=== PATIENT | female | born 1975 | race African-American/Black ===

== ENCOUNTER 2019-07-29 14:26 | Inpatient (IN) | payer OTHER ==
[~2019-07-29] VITALS: Ht 165.1 cm; Wt 79.4 kg
--- NOTE | 2019-07-29 14:41 | NUR ---
ED Nurse Note: Patient came to ED from home as advised by Dr. Phipps post-fibroid embolization. Patient brought CT and lab results from [facility]. Patient AxO x 4, no s/s of acute distress. 20 g IV started in right AC, blood drawn and sent to lab, urine collected and sent to lab. Patient on the embroidery worker, bed in lowest position.
[2019-07-29] MEDS ORDERED: Morphine Sulfate 4mg/ml Inj (IV USE ONLY) IVP ONE ×2 (14:45→15:30)
[2019-07-29 14:49] VITALS: BP 115/76
--- NOTE | 2019-07-29 14:54 | Emergency Room Report ---
History of Present Illness General Chief Complaint: Abdominal Pain Source: Patient Present Illness HPI Disclaimer: Please note that this report is being documented using [employer] technology. This can lead to erroneous entry secondary to incorrect interpretation by the dictating instrument. HPI: 43-year-old female with recent right-sided uterine artery embolization for treatment of uterine fibroids presents for evaluation of abdominal pain. Procedure was 2 days ago. She went to [facility] emergency department today having a full panel of blood work and a CT scan. Blood work is unremarkable aside from mild anemia with a hemoglobin of 10.6 and an MCV of 65. The patient takes iron supplements. Otherwise chemistry unremarkable as is urine. CT scan shows a enlarged uterus with multiple fibroids and evidence of recent embolization procedure on the right side with a tiny foci of air but no evidence of hematoma or other significant pathology. The patient reports the right sided lower pelvic pain but denies any bleeding, hematoma over the puncture site, dysuria, hematuria, vomiting, fever, chills, chest pain or other symptoms at this time. PMH: Uterine fibroids PSH: Uterine artery embolization Allergies: Denies Social Hx: Current tobacco use, occasional alcohol use, denies drug use Allergies: Coded Allergies: No Known Allergies (Unverified , 07/29/19) Patient History Last Menstrual Period: on period Nursing Documentation-PMH Past Medical History: No History, Except For Review of Systems All Other Systems: negative except mentioned in HPI Physical Exam Vital Signs Date Time Temp Pulse Resp B/P (MAP) Pulse Ox O2 Delivery O2 Flow Rate FiO2 07/29/19 14:30 97.2 87 16 115/76 (89) 97 Room Air General: Awake and alert, no acute distress HEENT: NC/AT. EOMI. Cardiovascular: RRR. S1 and S2 normal. No murmur appreciated Resp: Normal work of breathing. No cough, wheezing or crackles appreciated Abdomen: Abdomen is soft, nondistended. There is tenderness palpation in the periumbilical region, suprapubic region, right lower quadrant without rebound or palpable mass. Venipuncture site over the right groin is clean dry and intact without bleeding and no hematoma. Skin: Intact. No abrasions, laceration or rash over the exposed skin MSK: Normal tone and bulk. Moving all extremities. No obvious deformity. Neuro: Awake and alert. Mentating appropriately. Medical Decision Making Diagnostic Impression: Primary Impression: Abdominal pain ER Course 43-year-old female presents for evaluation of abdominal pain 2 days after a uterine artery embolization procedure. Denies bleeding, vomiting, fevers or other sign of infection or intra-abdominal pathology. CT scan from [facility] emergency department interpreted as a enlarged uterus multiple fibroids but no evidence of bleed, obstruction or other significant pathology. Labs are within normal limits aside from microcytic anemia which is chronic for the patient. Will obtain IV access, give antiemetics and analgesics and admit for further monitoring and pain control. Last Vital Signs Date Time Temp Pulse Resp B/P (MAP) Pulse Ox O2 Delivery O2 Flow Rate FiO2 07/29/19 14:30 97.2 87 16 115/76 (89) 97 Room Air Disposition: PLACE IN OBSERVATION Condition: Stable Ottoniel Zepeda MD Jul 29, 2019 14:54
--- NOTE | 2019-07-29 15:05 | NUR ---
ED Nurse Note: Patient still feeling 10/10 lower right abdominal pain after Morphine 4mg, VSS. Dr. Zepeda notified.
[2019-07-29] MEDS ORDERED: PERCOCET 5-3251 EACH ORAL (16:13)
[2019-07-29] MEDS ORDERED: LEXAPRO20 MG ORAL (16:13)
[2019-07-29] MEDS ORDERED: COLACE100 MG ORAL (16:13)
[2019-07-29] MEDS ORDERED: AMOX TR-K CLV1 EAC2 ORAL (16:14)
[2019-07-29] MEDS ORDERED: ZOFRAN ODT8 MG ORAL (16:14)
--- NOTE | 2019-07-29 16:25 | NUR ---
ED Nurse Note: Report given to Pavithra DANIELS.
[2019-07-29 17:00] VITALS: BP 132/78
--- NOTE | 2019-07-29 17:00 | NUR ---
NURSE NOTES: Patient received from ER via gurney at 1700. Patient alert/oriented x4, calm. No SOB on RA. No NV. RAC heplock intact. Right groin steri strip x1, with tegederm in place, CDI. Belongings with son. Son at bedside. Vitals stable. Oriented patient to room and call light for safety. Bed in lowest position, call light in reach, will continue to monitor.
[2019-07-29] MEDS ORDERED: HYDROmorphone 1mg/ml Carpuject IVP PRN (17:15)
--- NOTE | 2019-07-29 18:30 | NUR ---
NURSE NOTES: Home medications reconciled with patient. Home medication bottles from home sent down to pharmacy security, patient aware/agrees, receipt slip in chart.
--- NOTE | 2019-07-29 19:50 | NUR ---
HAND-OFF: Report given to Chi DANIELS. Endorsed patient needs IVF to be started, awaiting from pharmacy, SCDs to be applied and Lexapro ordered from home meds list. Endorsed admission orders and new MOM order.
[2019-07-29 20:00] VITALS: BP 133/68
--- NOTE | 2019-07-29 20:00 | NUR ---
NURSE NOTES: Patient received in bed, son at bedside. C/O pain, will medicate as prescribed. Will start IVF and other due medication.
[2019-07-29] MEDS: D5 1/2NS w/KCl 20mEq 1,000 ML IV SCH (20:03)
[2019-07-29] MEDS: Milk of Magnesia 30ml Ud ORAL SCH (20:04)
--- NOTE | 2019-07-29 20:15 | NUR ---
NURSE NOTES: Call placed to Dr. Phipps re: patient requesting her home medication lexapro to be continued. Awaiting call back.
--- NOTE | 2019-07-29 21:00 | NUR ---
NURSE NOTES: No call back from Dr. Phipps. Follow up call placed.
[2019-07-29] MEDS: ceFAZolin sod 2 GM in D5W 110 ML IVPB SCH (21:12)
--- NOTE | 2019-07-29 22:00 | NUR ---
NURSE NOTES: No callback from Dr. Phipps. Call placed to Dr. Vanegas. Dr. Barnes picked up. Received order for lexapro 20mg po bedtime. Patient made aware and will administer.
[2019-07-30] VITALS (7 sets, daily range): BP systolic 93–171; BP diastolic 60–88
[2019-07-30] MEDS: ceFAZolin sod 2 GM in D5W 110 ML IVPB SCH ×3 (03:48→21:24)
[2019-07-30] MEDS: D5 1/2NS w/KCl 20mEq 1,000 ML IV SCH ×4 (03:48→23:49)
[2019-07-30 06:42] LABS: BASOPHILS % (AUTO) 1.6 % (0.0-2.0); EOSINOPHILS % (AUTO) 1.8 % (0.0-3.0); LYMPHOCYTES % (AUTO) 9.9 % (20.0-45.0); MEAN CORPUSCULAR VOLUME 68 FL (80-99); MONOCYTES % (AUTO) 8.3 % (1.0-10.0); NEUTROPHILS % (AUTO) 78.5 % (45.0-75.0); PLATELET COUNT 251 K/UL (150-450); RED CELL DISTRIBUTION WIDTH 19.3 % (11.6-14.8); WHITE BLOOD COUNT 12.5 K/UL (4.8-10.8)
[2019-07-30 07:00] LABS: ALANINE AMINOTRANSFERASE 47 U/L (12-78); ALBUMIN 2.9 G/DL (3.4-5.0); ALBUMIN/GLOBULIN RATIO 0.7 (1.0-2.7); ALKALINE PHOSPHATASE 79 U/L (46-116); ANION GAP 8 mmol/L (5-15); ASPARTATE AMINO TRANSFERASE 27 U/L (15-37); BILIRUBIN,TOTAL 0.2 MG/DL (0.2-1.0); BLOOD UREA NITROGEN 6 mg/dL (7-18); CALCIUM 7.9 MG/DL (8.5-10.1); CARBON DIOXIDE 26 MMOL/L (21-32); CHLORIDE 104 MMOL/L (98-107); CREATININE 0.8 MG/DL (0.55-1.30); POTASSIUM 3.9 MMOL/L (3.5-5.1); SODIUM 138 MMOL/L (136-145)
--- NOTE | 2019-07-30 07:03 | NUR ---
NURSE NOTES: Report received from Chi DANIELS, rounds made. Patient resting in semi-fowlers position in bed. No distress on RA. No NV. Poor appetite. IVF infusing to RAC as ordered (D51/2NS + 20 KCL at 125 ml/hr). Bilateral SCDs on. RLQ abdominal pain 5/10 at this time, will medicate as ordered. Encouraged PO fluid intake. Son at bedside. Call light in reach, bed in lowest position, will continue to monitor.
--- NOTE | 2019-07-30 07:09 | NUR ---
HAND-OFF: Report given to Shari DANIELS.
--- NOTE | 2019-07-30 11:10 | History & Physical ---
History of Present Illness General Date patient seen: Jul 30, 2019 Reason for Hospitalization: Abdominal Pain Present Illness HPI 43 y/o female w/ hx of uterine fibroid s/p embolization 07/27 having significant abdominal pain and brought into hospital. has been taking frequent pain medications. NO BM or passing of gas since 07/27 morning. She is tolerating clear liquids, is belching, no nausea or vomiting. No fever or chills. PMH: Uterine fibroids Tobacco use disorder Depression Allergies: Coded Allergies: No Known Allergies (Unverified , 07/29/19) Medication History Scheduled Amoxicillin/Potassium Clav 875-125 Mg Tab* (Amox Tr-K Clv 875-125 Mg Tab*), 1 TAB ORAL EVERY 12 HOURS, (Reported) Escitalopram Oxalate* (Lexapro*), 20 MG ORAL DAILY, (Reported) Scheduled PRN Docusate Sodium* (Colace*), 100 MG ORAL TWICE A DAY PRN for Constipation, ( Reported) Ondansetron Odt* (Zofran Odt*), 4 MG ORAL Q6H PRN for Nausea & Vomiting, ( Reported) Oxycodone/Acetaminophen 5-325* (Percocet 5-325 Mg Tablet*), 1 TAB ORAL Q4H PRN for For Pain, (Reported) Patient History History Provided By: Patient, Family Member, Medical Record Healthcare decision maker N Resuscitation status Full Code Advanced Directive on File No Review of Systems Review of Symptoms General ROS: no weight loss or fever Psychological ROS: no depression or mood changes, no memory loss Ophthalmic ROS: no visual changes or eye irritation ENT ROS: no nasal congestion, hearing loss, dizziness Allergy and Immunology ROS: no allergic symptoms or urticaria Hematological and Lymphatic ROS: no swollen glands, unusual bleeding or bruising Endocrine ROS: no polyuria, polydipsia, weight changes, temperature intolerance Respiratory ROS: no cough, shortness of breath, or wheezing Cardiovascular ROS: no chest pain or dyspnea on exertion Gastrointestinal ROS: + abdominal pain Musculoskeletal ROS: no myalgias or arthralgias Neurological ROS: no TIA or stroke symptoms Dermatological ROS: no new or changing skin lesions, rashes or pruritis Physical Exam Physical Exam General appearance: alert, cooperative, no distress, appears stated age Head: Normocephalic, without obvious abnormality, atraumatic Eyes: conjunctivae/corneas clear. PERRL, EOM's intact. Fundi benign Throat: Lips, mucosa, and tongue normal. Teeth and gums normal Neck: supple, symmetrical, trachea midline, no adenopathy, thyroid: not enlarged, symmetric, no tenderness/mass/nodules, no carotid bruit and no JVD Lungs: clear to auscultation bilaterally Heart: regular rate and rhythm, S1, S2 normal, no murmur, click, rub or gallop Abdomen: Tender, distended, hyperactive bowel sounds at times, then very quiet Extremities: extremities normal, atraumatic, no cyanosis or edema Pulses: 2+ and symmetric Skin: Skin color, texture, turgor normal. No rashes or lesions Neurologic: Grossly normal Last 24 Hour Vital Signs Date Time Temp Pulse Resp B/P (MAP) Pulse Ox O2 Delivery O2 Flow Rate FiO2 07/30/19 08:00 98.1 84 16 129/75 (93) 93 07/30/19 04:00 99.3 86 20 114/64 (81) 98 07/30/19 03:29 99.4 07/30/19 00:00 99.4 83 20 93/60 (71) 94 07/29/19 21:00 Room Air 07/29/19 20:00 99.4 83 20 133/68 (89) 98 07/29/19 17:34 Room Air 07/29/19 17:00 97.3 80 20 132/78 (96) 99 07/29/19 16:30 97.3 76 17 116/72 100 Room Air 07/29/19 15:30 97.1 07/29/19 15:30 97.1 07/29/19 14:49 97.2 74 16 115/76 97 Room Air 07/29/19 14:49 87 16 Room Air 07/29/19 14:30 97.2 87 16 115/76 (89) 97 Room Air Intake and Output 07/29/19 07/30/19 19:00 07:00 Intake Total 0 ml 1485 ml Balance 0 ml 1485 ml Intake Oral 0 ml 200 ml IV Total 1285 ml # Voids 1 Laboratory Tests Test 07/30/19 04:55 White Blood Count 12.5 K/UL (4.8-10.8) H Red Blood Count 4.70 M/UL (4.20-5.40) Hemoglobin 10.0 G/DL (12.0-16.0) L Hematocrit 32.0 % (37.0-47.0) L Mean Corpuscular Volume 68 FL (80-99) L Mean Corpuscular Hemoglobin 21.2 PG (27.0-31.0) L Mean Corpuscular Hemoglobin Concent 31.1 G/DL (32.0-36.0) L Red Cell Distribution Width 19.3 % (11.6-14.8) H Platelet Count 251 K/UL (150-450) Mean Platelet Volume 7.0 FL (6.5-10.1) Neutrophils (%) (Auto) 78.5 % (45.0-75.0) H Lymphocytes (%) (Auto) 9.9 % (20.0-45.0) L Monocytes (%) (Auto) 8.3 % (1.0-10.0) Eosinophils (%) (Auto) 1.8 % (0.0-3.0) Basophils (%) (Auto) 1.6 % (0.0-2.0) Sodium Level 138 MMOL/L (136-145) Potassium Level 3.9 MMOL/L (3.5-5.1) Chloride Level 104 MMOL/L (98-107) Carbon Dioxide Level 26 MMOL/L (21-32) Anion Gap 8 mmol/L (5-15) Blood Urea Nitrogen 6 mg/dL (7-18) L Creatinine 0.8 MG/DL (0.55-1.30) Estimat Glomerular Filtration Rate > 60 mL/min (>60) Glucose Level 113 MG/DL (74-106) H Calcium Level 7.9 MG/DL (8.5-10.1) L Total Bilirubin 0.2 MG/DL (0.2-1.0) Aspartate Amino Transf (AST/SGOT) 27 U/L (15-37) Alanine Aminotransferase (ALT/SGPT) 47 U/L (12-78) Alkaline Phosphatase 79 U/L (46-116) Total Protein 7.2 G/DL (6.4-8.2) Albumin 2.9 G/DL (3.4-5.0) L Globulin 4.3 g/dL Albumin/Globulin Ratio 0.7 (1.0-2.7) L Height (Feet): 5 Height (Inches): 5.00 Weight (Pounds): 175 Medications Current Medications Medications (Trade) Dose Ordered Sig/Kevon Route PRN Reason Start Time Stop Time Status Last Admin Dose Admin Cefazolin Sodium 2 gm/Dextrose 110 ml @ 220 mls/hr Q8H IVPB 07/29/19 20:00 08/05/19 19:59 07/30/19 03:48 Dextrose/ Electrolytes 1,000 ml @ 125 mls/hr Q8H IV 07/29/19 18:30 08/28/19 18:29 07/30/19 03:48 Escitalopram Oxalate (Lexapro) 20 mg BEDTIME ORAL 07/29/19 23:00 08/28/19 22:59 07/29/19 22:12 Hydromorphone HCl (Dilaudid) 1 mg Q3H PRN IVP Mild Pain (Pain Scale 1-3) 07/29/19 17:15 08/05/19 17:14 Hydromorphone HCl (Dilaudid) 2 mg Q2H PRN IVP Severe Pain (Pain Scale 7-10) 07/29/19 17:15 08/05/19 17:14 07/30/19 09:19 Hydromorphone HCl (Dilaudid) 2 mg Q3H PRN IVP Moderate Pain (Pain Scale 4-6) 07/29/19 17:15 08/05/19 17:14 Magnesium Hydroxide (Mom) 30 ml TWICE A DAY ORAL 07/29/19 19:45 08/28/19 19:44 07/29/19 20:04 Ondansetron HCl (Zofran) 4 mg Q6H PRN IVP Nausea & Vomiting 07/29/19 17:15 08/28/19 17:14 Assessment/Plan Assessment/Plan: Problem List: * Intractable abdominal pain * Uterine fibroid s/p emobilization 07/27 * Depression * tobacco use disorder Plan: * pain control * bowel regimen * clear liquid diet as tolerated * IVF * KUB * advised to ambulate Case d/w Dr. Phipps [facility] declaration INPATIENT level of care is warranted for this patient because patient is a 89 year old with who presents with suspicion of . I have a high level of concern because . Patient is at high risk for . Plan of care/treatment include . Patient care is expected to be greater than 2 midnights. OBSERVATION level of care is warranted for this patient. Patient is a 89 year old with who presents with . Patient will be admitted for 1 midnight, but if additional night(s) is/are necessary, patient will be converted to inpatient status for the entire hospitalization Disposition: Once the patient is stable to leave the hospital, I anticipate the patient will likely be discharged to the following environment: Estimated discharge date: I spent 70 minutes on this patient's case, and minutes was dedicated to counseling and/or care coordination. MIPS (Merit-based Incentive Payment System) Applicable CPT: 54093, 59044 CHECK ALL THAT ARE MET: Measure #5 (CHF): All ages. Prescribe PRICILLA/ARB upon discharge for patients with left ventricular systolic dysfunction. If not, the reason is clearly documented in the medical chart. Measure #8 (CHF): All ages. Prescribe a beta bandar upon discharge for patients with left ventricular systolic dysfunction. If not, the reason is clearly documented in the medical chart. Measure #47 Advance care plan or surrogate decision maker documented in the medical record. Measure #130 The provider has documented, updated, or reviewed the patients current medication list and has documented it in the patients note. Measure #374 (All): Send report to referring provider. Measure #407(Sepsis due to MSSA bacteremia): Age 18+ Patient treated with a beta-lactam antibiotic (Nafcillin, Oxacillin or Cefazolin) as definitive therapy. MEDICAL COMPLEXITY High complexity medical decision making (need 2/3 categories) Problem - need 4 points Acute/new problem with new plan for workup (4 points, 1 max) Acute/new problem without additional workup (3 points, 1 max) Unstable chronic problem actively being managed (2 point each, 2 max) Stable chronic problem actively being managed (1 point each, 2 max) Self-limited/transient process (constipation, muscle ache, etc) (1 point each , 2 max) Data - need 4 points Reviewed labs/imaging studies (1 points, 2 max) Independent review of imaging (EKG, xrays, etc) (2 points, 2 max) Discussed case with consult/other MD/RN (2 points, 2 max) High Risk - qualify if have one of the following: Severe exacerbation of acute problem, acute mental status change, IV narcotics , monitoring drug levels (vancomycin, INR, tacrolimus etc) Jim Barnes MD Jul 30, 2019 11:10
[2019-07-30] MEDS: Milk of Magnesia 30ml Ud ORAL SCH ×2 (11:46→17:33)
[2019-07-30] MEDS: Bisacodyl EC 5mg tab ORAL SCH (11:47)
[2019-07-30] MEDS: Docusate 100mg cap ORAL SCH ×2 (11:47→17:34)
--- NOTE | 2019-07-30 14:12 | NUR ---
NURSE NOTES: Spoke to regarding patient and new order received. Order read back and carried out.
--- NOTE | 2019-07-30 14:17 | General Surgery Progress Note ---
General Surgery-Progress Note Subjective Day of Surgery: friday Procedure Performed uterine artery embolization Symptoms: pain same, voiding well Objective Last 24 Hour Vital Signs Date Time Temp Pulse Resp B/P (MAP) Pulse Ox O2 Delivery O2 Flow Rate FiO2 07/30/19 08:00 98.1 84 16 129/75 (93) 93 07/30/19 04:00 99.3 86 20 114/64 (81) 98 07/30/19 03:29 99.4 07/30/19 00:00 99.4 83 20 93/60 (71) 94 07/29/19 21:00 Room Air 07/29/19 20:00 99.4 83 20 133/68 (89) 98 07/29/19 17:34 Room Air 07/29/19 17:00 97.3 80 20 132/78 (96) 99 07/29/19 16:30 97.3 76 17 116/72 100 Room Air 07/29/19 15:30 97.1 07/29/19 15:30 97.1 07/29/19 14:49 97.2 74 16 115/76 97 Room Air 07/29/19 14:49 87 16 Room Air 07/29/19 14:30 97.2 87 16 115/76 (89) 97 Room Air I&O Intake and Output 07/29/19 07/30/19 19:00 07:00 Intake Total 0 ml 1485 ml Balance 0 ml 1485 ml Intake Oral 0 ml 200 ml IV Total 1285 ml # Voids 1 Dressing: dry Wound: clean Drains: none Cardiovascular: RSR Respiratory: clear Abdomen: soft, flat, scaphoid, tenderness, decreased bowel sounds Extremities: no edema, no tenderness, no cyanosis Laboratory Tests Test 07/30/19 04:55 White Blood Count 12.5 K/UL (4.8-10.8) H Red Blood Count 4.70 M/UL (4.20-5.40) Hemoglobin 10.0 G/DL (12.0-16.0) L Hematocrit 32.0 % (37.0-47.0) L Mean Corpuscular Volume 68 FL (80-99) L Mean Corpuscular Hemoglobin 21.2 PG (27.0-31.0) L Mean Corpuscular Hemoglobin Concent 31.1 G/DL (32.0-36.0) L Red Cell Distribution Width 19.3 % (11.6-14.8) H Platelet Count 251 K/UL (150-450) Mean Platelet Volume 7.0 FL (6.5-10.1) Neutrophils (%) (Auto) 78.5 % (45.0-75.0) H Lymphocytes (%) (Auto) 9.9 % (20.0-45.0) L Monocytes (%) (Auto) 8.3 % (1.0-10.0) Eosinophils (%) (Auto) 1.8 % (0.0-3.0) Basophils (%) (Auto) 1.6 % (0.0-2.0) Sodium Level 138 MMOL/L (136-145) Potassium Level 3.9 MMOL/L (3.5-5.1) Chloride Level 104 MMOL/L (98-107) Carbon Dioxide Level 26 MMOL/L (21-32) Anion Gap 8 mmol/L (5-15) Blood Urea Nitrogen 6 mg/dL (7-18) L Creatinine 0.8 MG/DL (0.55-1.30) Estimat Glomerular Filtration Rate > 60 mL/min (>60) Glucose Level 113 MG/DL (74-106) H Calcium Level 7.9 MG/DL (8.5-10.1) L Total Bilirubin 0.2 MG/DL (0.2-1.0) Aspartate Amino Transf (AST/SGOT) 27 U/L (15-37) Alanine Aminotransferase (ALT/SGPT) 47 U/L (12-78) Alkaline Phosphatase 79 U/L (46-116) Total Protein 7.2 G/DL (6.4-8.2) Albumin 2.9 G/DL (3.4-5.0) L Globulin 4.3 g/dL Albumin/Globulin Ratio 0.7 (1.0-2.7) L Additional Comments abdominal x ray, much stool, no obvious pathology Plan Additional Comments GS, GI consults ordered, fleet's enema, ambulate. Sumanth Phipps MD Jul 30, 2019 14:17
--- NOTE | 2019-07-30 14:26 | Diagnostic Imaging Report ---
Indication: Abdominal pain. Status post recent fibroid embolization Comparison: None Single view of the abdomen obtained Findings: Bowel gas pattern is nonspecific. No mass, ectopic calcifications, or abnormal gas collections are identified. There is a moderate amount of fecal retention within the right hemicolon which is distended. The bones are unremarkable. Impression: Moderate fecal retention within the colon.
--- NOTE | 2019-07-30 14:34 | NUR ---
*-* INSURANCE *-* ALL AVAILABLE CLINICALS HAVE BEEN FAXED TO: [facility] RAMIROM: MATT REF# [id number] FAX [phone] Work Work
--- NOTE | 2019-07-30 14:46 | General Progress Note ---
Assessment/Plan Problem List: (1) Abdominal pain ICD Codes: R10.9 - Unspecified abdominal pain SNOMED: 16197017 (2) Uncontrollable post procedure pain (3) Constipation ICD Codes: K59.00 - Constipation, unspecified SNOMED: 79625404 Assessment/Plan: trial of relistor bowel regimen kub in am repeat labs will fu Subjective ROS Limited/Unobtainable: Yes Allergies: Coded Allergies: No Known Allergies (Unverified , 07/29/19) Objective Last 24 Hour Vital Signs Date Time Temp Pulse Resp B/P (MAP) Pulse Ox O2 Delivery O2 Flow Rate FiO2 07/30/19 08:00 98.1 84 16 129/75 (93) 93 07/30/19 04:00 99.3 86 20 114/64 (81) 98 07/30/19 03:29 99.4 07/30/19 00:00 99.4 83 20 93/60 (71) 94 07/29/19 21:00 Room Air 07/29/19 20:00 99.4 83 20 133/68 (89) 98 07/29/19 17:34 Room Air 07/29/19 17:00 97.3 80 20 132/78 (96) 99 07/29/19 16:30 97.3 76 17 116/72 100 Room Air 07/29/19 15:30 97.1 07/29/19 15:30 97.1 07/29/19 14:49 97.2 74 16 115/76 97 Room Air 07/29/19 14:49 87 16 Room Air Intake and Output 07/29/19 07/30/19 19:00 07:00 Intake Total 0 ml 1485 ml Balance 0 ml 1485 ml Intake Oral 0 ml 200 ml IV Total 1285 ml # Voids 1 Laboratory Tests 07/30/19 04:55: White Blood Count 12.5H, Red Blood Count 4.70, Hemoglobin 10.0L, Hematocrit 32.0L, Mean Corpuscular Volume 68L, Mean Corpuscular Hemoglobin 21.2L, Mean Corpuscular Hemoglobin Concent 31.1L, Red Cell Distribution Width 19.3H, Platelet Count 251, Mean Platelet Volume 7.0, Neutrophils (%) (Auto) 78.5H, Lymphocytes (%) (Auto) 9.9L, Monocytes (%) (Auto) 8.3, Eosinophils (%) (Auto) 1.8, Basophils (%) (Auto) 1.6, Sodium Level 138, Potassium Level 3.9, Chloride Level 104, Carbon Dioxide Level 26, Anion Gap 8, Blood Urea Nitrogen 6L, Creatinine 0.8, Estimat Glomerular Filtration Rate > 60, Glucose Level 113H, Calcium Level 7.9L, Total Bilirubin 0.2, Aspartate Amino Transf (AST/SGOT) 27, Alanine Aminotransferase (ALT/SGPT) 47, Alkaline Phosphatase 79, Total Protein 7.2, Albumin 2.9L, Globulin 4.3, Albumin/Globulin Ratio 0.7L Height (Feet): 5 Height (Inches): 5.00 Weight (Pounds): 175 General Appearance: alert EENT: normal ENT inspection Neck: normal alignment Cardiovascular: normal rate Respiratory/Chest: lungs clear Abdomen: soft, hypoactive bowel sounds, tender Extremities: non-tender Matt Oquendo MD Jul 30, 2019 14:46
--- NOTE | 2019-07-30 15:12 | Consultation ---
History of Present Illness General Date patient seen: Jul 30, 2019 Reason for Hospitalization: Abdominal Pain Present Illness HPI This is a very pleasant 43 year old female history of symptomatic large uterine fibroid s/p embolization 07/[address] Conde who [place] [facility] [place] of abdominal pain. has been taking frequent pain medications. No BM or passing of gas since 07/27 morning. states she is usually regular but since has been constipated. no n/v/f/c. generalized abdominal discomfort as cramping 02/06. Allergies: Coded Allergies: No Known Allergies (Unverified , 07/29/19) Medication History Scheduled Amoxicillin/Potassium Clav 875-125 Mg Tab* (Amox Tr-K Clv 875-125 Mg Tab*), 1 TAB ORAL EVERY 12 HOURS, (Reported) Escitalopram Oxalate* (Lexapro*), 20 MG ORAL DAILY, (Reported) Scheduled PRN Docusate Sodium* (Colace*), 100 MG ORAL TWICE A DAY PRN for Constipation, ( Reported) Ondansetron Odt* (Zofran Odt*), 4 MG ORAL Q6H PRN for Nausea & Vomiting, ( Reported) Oxycodone/Acetaminophen 5-325* (Percocet 5-325 Mg Tablet*), 1 TAB ORAL Q4H PRN for For Pain, (Reported) Patient History History Provided By: Patient, Medical Record, PMD Healthcare decision maker N Resuscitation status Full Code Advanced Directive on File No Past Medical/Surgical History Past Medical/Surgical History: (1) Abdominal pain (2) Uncontrollable post procedure pain (3) Constipation Review of Systems Review of Symptoms General ROS: no weight loss or fever Psychological ROS: no depression or mood changes, no memory loss Ophthalmic ROS: no visual changes or eye irritation ENT ROS: no nasal congestion, hearing loss, dizziness Allergy and Immunology ROS: no allergic symptoms or urticaria Hematological and Lymphatic ROS: no swollen glands, unusual bleeding or bruising Endocrine ROS: no polyuria, polydipsia, weight changes, temperature intolerance Respiratory ROS: no cough, shortness of breath, or wheezing Cardiovascular ROS: no chest pain or dyspnea on exertion Gastrointestinal ROS: abdominal pain, bright red blood in stool. Musculoskeletal ROS: no myalgias or arthralgias Neurological ROS: no TIA or stroke symptoms Dermatological ROS: no new or changing skin lesions, rashes or pruritis Physical Exam Physical Exam General appearance: alert, cooperative, no distress, appears stated age Head: Normocephalic, without obvious abnormality, atraumatic Eyes: conjunctivae/corneas clear. PERRL, EOM's intact. Fundi benign Throat: Lips, mucosa, and tongue normal. Teeth and gums normal Neck: supple, symmetrical, trachea midline, no adenopathy, thyroid: not enlarged, symmetric, no tenderness/mass/nodules, no carotid bruit and no JVD Lungs: clear to auscultation bilaterally Heart: regular rate and rhythm, S1, S2 normal, no murmur, click, rub or gallop Abdomen: soft, mild discomfort /tender. Bowel sounds hypoactive. No masses, no organomegaly Extremities: extremities normal, atraumatic, no cyanosis or edema Pulses: 2+ and symmetric Skin: Skin color, texture, turgor normal. No rashes or lesions Neurologic: Grossly normal Last 24 Hour Vital Signs Date Time Temp Pulse Resp B/P (MAP) Pulse Ox O2 Delivery O2 Flow Rate FiO2 07/30/19 08:00 98.1 84 16 129/75 (93) 93 07/30/19 04:00 99.3 86 20 114/64 (81) 98 07/30/19 03:29 99.4 07/30/19 00:00 99.4 83 20 93/60 (71) 94 07/29/19 21:00 Room Air 07/29/19 20:00 99.4 83 20 133/68 (89) 98 07/29/19 17:34 Room Air 07/29/19 17:00 97.3 80 20 132/78 (96) 99 07/29/19 16:30 97.3 76 17 116/72 100 Room Air 07/29/19 15:30 97.1 07/29/19 15:30 97.1 Intake and Output 07/29/19 07/30/19 19:00 07:00 Intake Total 0 ml 1485 ml Balance 0 ml 1485 ml Intake Oral 0 ml 200 ml IV Total 1285 ml # Voids 1 Laboratory Tests Test 07/30/19 04:55 White Blood Count 12.5 K/UL (4.8-10.8) H Red Blood Count 4.70 M/UL (4.20-5.40) Hemoglobin 10.0 G/DL (12.0-16.0) L Hematocrit 32.0 % (37.0-47.0) L Mean Corpuscular Volume 68 FL (80-99) L Mean Corpuscular Hemoglobin 21.2 PG (27.0-31.0) L Mean Corpuscular Hemoglobin Concent 31.1 G/DL (32.0-36.0) L Red Cell Distribution Width 19.3 % (11.6-14.8) H Platelet Count 251 K/UL (150-450) Mean Platelet Volume 7.0 FL (6.5-10.1) Neutrophils (%) (Auto) 78.5 % (45.0-75.0) H Lymphocytes (%) (Auto) 9.9 % (20.0-45.0) L Monocytes (%) (Auto) 8.3 % (1.0-10.0) Eosinophils (%) (Auto) 1.8 % (0.0-3.0) Basophils (%) (Auto) 1.6 % (0.0-2.0) Sodium Level 138 MMOL/L (136-145) Potassium Level 3.9 MMOL/L (3.5-5.1) Chloride Level 104 MMOL/L (98-107) Carbon Dioxide Level 26 MMOL/L (21-32) Anion Gap 8 mmol/L (5-15) Blood Urea Nitrogen 6 mg/dL (7-18) L Creatinine 0.8 MG/DL (0.55-1.30) Estimat Glomerular Filtration Rate > 60 mL/min (>60) Glucose Level 113 MG/DL (74-106) H Calcium Level 7.9 MG/DL (8.5-10.1) L Total Bilirubin 0.2 MG/DL (0.2-1.0) Aspartate Amino Transf (AST/SGOT) 27 U/L (15-37) Alanine Aminotransferase (ALT/SGPT) 47 U/L (12-78) Alkaline Phosphatase 79 U/L (46-116) Total Protein 7.2 G/DL (6.4-8.2) Albumin 2.9 G/DL (3.4-5.0) L Globulin 4.3 g/dL Albumin/Globulin Ratio 0.7 (1.0-2.7) L Height (Feet): 5 Height (Inches): 5.00 Weight (Pounds): 175 Medications Current Medications Medications (Trade) Dose Ordered Sig/Kevon Route PRN Reason Start Time Stop Time Status Last Admin Dose Admin Bisacodyl (Dulcolax) 10 mg DAILY ORAL 07/30/19 11:00 08/29/19 10:59 07/30/19 11:47 Cefazolin Sodium 2 gm/Dextrose 110 ml @ 220 mls/hr Q8H IVPB 07/29/19 20:00 08/05/19 19:59 07/30/19 12:44 Dextrose/ Electrolytes 1,000 ml @ 125 mls/hr Q8H IV 07/29/19 18:30 08/28/19 18:29 07/30/19 12:44 Docusate Sodium (Colace) 100 mg TWICE A DAY ORAL 07/30/19 11:00 08/29/19 10:59 07/30/19 11:47 Escitalopram Oxalate (Lexapro) 20 mg BEDTIME ORAL 07/29/19 23:00 08/28/19 22:59 07/29/19 22:12 Hydromorphone HCl (Dilaudid) 1 mg Q3H PRN IVP Mild Pain (Pain Scale 1-3) 07/29/19 17:15 08/05/19 17:14 Hydromorphone HCl (Dilaudid) 2 mg Q2H PRN IVP Severe Pain (Pain Scale 7-10) 07/29/19 17:15 08/05/19 17:14 07/30/19 13:33 Hydromorphone HCl (Dilaudid) 2 mg Q3H PRN IVP Moderate Pain (Pain Scale 4-6) 07/29/19 17:15 08/05/19 17:14 Iron Sucrose 100 mg/Sodium Chloride 60 ml @ 240 mls/hr BEDTIME IVPB 07/30/19 21:00 08/03/19 21:14 Lactulose (Cephulac) 20 gm THREE TIMES A DAY ORAL 07/30/19 18:00 08/29/19 17:59 UNV Magnesium Hydroxide (Mom) 30 ml TWICE A DAY ORAL 07/29/19 19:45 08/28/19 19:44 07/30/19 11:46 Methylnaltrexone [place] (Relistor) 12 mg QOD SUBQ 08/01/19 09:00 08/31/19 08:59 UNV Mineral Oil (Fleet's Mineral Oil Enema) 133 ml ONCE ONCE RECTAL 07/30/19 14:15 07/30/19 14:16 UNV Ondansetron HCl (Zofran) 4 mg Q6H PRN IVP Nausea & Vomiting 07/29/19 17:15 08/28/19 17:14 07/30/19 13:42 Assessment/Plan Problem List: (1) Abdominal pain Assessment & Plan: 43F with abdominal pain. likely related to recent embolization and/or constipated. KUB noted exam as above labs noted umbilical reducible hernia unlikely etiology bowel care mag citrate AM KUB decrease narcotic use will follow with exam and care plan thank you ICD Codes: R10.9 - Unspecified abdominal pain SNOMED: [id number] Richar Quinteros Jul 30, 2019 15:12
[2019-07-30] MEDS ORDERED: Fleet's Mineral Oil Enema RECTAL SCH (15:15)
--- NOTE | 2019-07-30 15:56 | NUR ---
CASE MANAGEMENT: INITIAL REVIEW 43YR OLD FEMALE FROM HOME CC: ABD PAIN PMH: S/P 07/27/19 UTERINE FIBROIDS EMBOLIZATION SI:INTRACTABLE ABD PAIN 97.1 87 16 115/76 97% ON RA IS:IV MORPHINE SULFATE X2 IV ZOFRAN X1 US ABD X1 \: 3E MED SURG UNIT CASE MANAGEMENT: REVIEW 07/30/2019 SI:INTRACTABLE ABD PAIN 98.1 84 16 129/75 93% ON RA WBC 12.5 H/H 10.0/32.0 CA+7.9 IS:IV ANCEF Q8HR IV D5@125ML/HR IV ZOFRAN Q6HR/PRN LEXAPRO PO BID IV DILAUDID Q2HR/PRN \: 3E MED SURG UNIT PLAN: PAIN CONTROL TRAIL RELISTOR
[2019-07-30] MEDS ORDERED: Magnesium Citrate Liq Btl ORAL SCH (16:00)
[2019-07-30] MEDS: Lactulose 20gm/30ml UDC ORAL SCH (17:33)
--- NOTE | 2019-07-30 19:02 | NUR ---
HAND-OFF: Report given to René DANIELS, rounds made. Addendum: 07/30/19 at 2031 by Shari Watson RN Endorsed update in POC, no BM yet.
--- NOTE | 2019-07-30 19:15 | NUR ---
NURSE NOTES: Dr. Phipps and Dr. Barnes notified that patient has absent bowel sounds, distention, abdominal tenderness, last BM 07/27, poor appetite, one experience with nause, no emesis, no flatulence, no urge for BM either, labs reviewed. On clear liquids. Administered TAP water enema (instilled 400 ml at 0945), ambulated, no changes. Dr. Barnes discussed new POC with patient (administered Dulcolax and Colace), no changes. Abdominal XR done at 1305 (sent down via ), results reviewed by Dr. Phipps, order for Fleets. Administered at 1600, patient ambulated in halls, no BM. Administered MOM, lactulose, Mag Citrate, see eMAR. No changes, no BM, Dr. Phipps updated last at 1915. Endorsed above to next shift.
--- NOTE | 2019-07-30 19:20 | NUR ---
NURSE NOTES: Receive a report from FRANCES Mccarthy. Round is done. Pt is awake and alert. Still noted pain on RLQ. After two times enema, pt did not have BM and no gas passing yet. BS is hypoactive. Encourage to ambulation. No nausea/vomiting but has burping. Provide information and reassure pt. Surgery site is clear. IV on right AC is intact. Call light within reach. Will continue to monitor.
[2019-07-30] MEDS: Iron Sucrose 100 MG in NS 55 ML IVPB SCH (20:49)
--- NOTE | 2019-07-30 21:30 | NUR ---
NURSE NOTES: Pt had gas passing but not BM yet. Despite pain medication, pain level is 6/10 but after gas passing, pt felt much comfortable. Will continue to monitor.
--- NOTE | 2019-07-30 22:15 | NUR ---
NURSE NOTES: Pt had two times BM in the bathroom moderate amount. Noted abdomen bloated but discomfort level dropped. Will continue to monitor.
[2019-07-31] VITALS: BP 141/84
--- NOTE | 2019-07-31 02:35 | NUR ---
NURSE NOTES: Pt had one more BM in the bathroom. Soreness on RLQ is 6/10. Given pain medication and Zofran as ordered. Will continue to monitor.
[2019-07-31 04:00] VITALS: BP 126/76
[2019-07-31] MEDS: ceFAZolin sod 2 GM in D5W 110 ML IVPB SCH ×3 (04:30→21:57)
--- NOTE | 2019-07-31 05:00 | NUR ---
NURSE NOTES: Pain level is 4/10. No nausea noted. Pt is asleep without distress. Will continue to monitor.
--- NOTE | 2019-07-31 07:00 | NUR ---
NURSE NOTES: Call MD's office but unable to reach at this time. Will endorse AM shift follow up.
[2019-07-31 07:20] LABS: % IRON SATURATION 11 % (15-50); IRON 32 ug/dL (50-175); TOTAL IRON BINDING CAPACITY 304 ug/dL (250-450)
[2019-07-31 07:22] LABS: HEMATOCRIT 31.7 % (37.0-47.0); HEMOGLOBIN 9.9 G/DL (12.0-16.0); MEAN CORPUSCULAR VOLUME 68 FL (80-99); PLATELET COUNT 279 K/UL (150-450); RED BLOOD COUNT 4.66 M/UL (4.20-5.40); RED CELL DISTRIBUTION WIDTH 19.3 % (11.6-14.8); WHITE BLOOD COUNT 21.5 K/UL (4.8-10.8)
[2019-07-31 07:23] LABS: ALANINE AMINOTRANSFERASE 41 U/L (12-78); ALBUMIN 2.6 G/DL (3.4-5.0); ALBUMIN/GLOBULIN RATIO 0.6 (1.0-2.7); ALKALINE PHOSPHATASE 87 U/L (46-116); ANION GAP 8 mmol/L (5-15); ASPARTATE AMINO TRANSFERASE 26 U/L (15-37); BILIRUBIN,TOTAL 0.3 MG/DL (0.2-1.0); BLOOD UREA NITROGEN 4 mg/dL (7-18); CARBON DIOXIDE 26 MMOL/L (21-32); CHLORIDE 101 MMOL/L (98-107); CREATININE 0.7 MG/DL (0.55-1.30); POTASSIUM 3.9 MMOL/L (3.5-5.1); SODIUM 135 MMOL/L (136-145)
--- NOTE | 2019-07-31 07:55 | NUR ---
HAND-OFF: Written Report left to FRANCES Mccarthy. CN made aware.
[2019-07-31 08:00] VITALS: BP 126/82
[2019-07-31] MEDS: Milk of Magnesia 30ml Ud ORAL SCH ×2 (09:00→18:00)
--- NOTE | 2019-07-31 09:20 | NUR ---
NURSE NOTES: Rounds made. Patient resting in semi-fowlers position in bed. No distress on RA, no SOB. Abdominal pain 12/07, will medicate as ordered. Patient had x4 BMs in past shift. IVF (D5 1/2 +20 KCL at 125 ml/hr) infusing to RAC, without difficulty. Bilateral SCDs off. Son at bedside, call light in reach, bed in lowest position, will continue to monitor.
[2019-07-31] MEDS: Bisacodyl EC 5mg tab ORAL SCH (10:39)
[2019-07-31] MEDS: Docusate 100mg cap ORAL SCH ×2 (10:39→18:20)
[2019-07-31] MEDS: Lactulose 20gm/30ml UDC ORAL SCH ×3 (10:39→18:20)
--- NOTE | 2019-07-31 10:59 | NUR ---
RADIOLOGY DEPT., ABDOMEN X-RAY COMPLETED.-P.DYE
--- NOTE | 2019-07-31 11:32 | Diagnostic Imaging Report ---
ADDENDUM - Added by Panchito Finley M.D. on 07/31/2019 11:33 AM (-08:00) Decreased stool in the right abdomen. EXAM: XR Abdomen, 2 Views CLINICAL HISTORY: ABD PAIN TECHNIQUE: Frontal view of the abdomen/pelvis with upright view of the abdomen. COMPARISON: Abdominal radiographs on 07/30/2019. FINDINGS: Hardware: None. Abdomen: Nonspecific bowel gas pattern with gas-filled colon and small bowel. No free air. Bones: Normal. Soft tissues: Normal. Other: Mild projected over the left pelvis. Presumed phleboliths in the right pelvis. IMPRESSION: Nonspecific bowel gas pattern with gas-filled colon and small bowel. Ileus or enteritis is not excluded.
[2019-07-31 12:00] VITALS: BP 122/78
--- NOTE | 2019-07-31 12:06 | Pulmonology Progress Note ---
Assessment/Plan Problems: (1) Leukocytosis (2) Uncontrollable post procedure pain (3) Constipation Assessment/Plan Problem List: * Intractable abdominal pain * Uterine fibroid s/p emobilization 07/27 * Depression * tobacco use disorder Plan: * pain control * bowel regimen * Diet as tolerated * mIVF * IS * advised to ambulate Case d/w Dr. Phipps Subjective Allergies: Coded Allergies: No Known Allergies (Unverified , 07/29/19) Subjective AFVSS on RA Pain better, controlled with meds OOB no F/C, no CP, no SOB No NV, no BM, + flatus, voiding freely WCt 21 Objective Last 24 Hour Vital Signs Date Time Temp Pulse Resp B/P (MAP) Pulse Ox O2 Delivery O2 Flow Rate FiO2 07/31/19 08:00 98.3 94 20 126/82 (97) 95 07/31/19 04:00 97.9 90 20 126/76 (93) 93 07/31/19 00:00 98.8 98 20 141/84 (103) 96 07/30/19 21:00 Room Air 07/30/19 20:00 97.9 98 20 131/75 (93) 94 07/30/19 16:00 99.8 106 18 140/86 (104) 95 07/30/19 13:50 94 144/88 (106) Intake and Output 07/30/19 07/31/19 19:00 07:00 Intake Total 2175 ml 1450 ml Balance 2175 ml 1450 ml Intake Oral 800 ml 200 ml IV Total 1375 ml 1250 ml # Voids 3 # Bowel Movements 3 General Appearance: WD/WN, no acute distress HEENT: normocephalic, atraumatic, anicteric Respiratory/Chest: chest wall non-tender, lungs clear, normal breath sounds, no respiratory distress, no accessory muscle use Cardiovascular: normal peripheral pulses, normal rate, regular rhythm Abdomen: hypoactive bowel sounds, tender - mild diffuse, other - S/ND Extremities: no cyanosis, no clubbing, no edema Laboratory Tests 07/31/19 04:45: White Blood Count 21.5#H, Red Blood Count 4.66, Hemoglobin 9.9L, Hematocrit 31.7L, Mean Corpuscular Volume 68L, Mean Corpuscular Hemoglobin 21.1L, Mean Corpuscular Hemoglobin Concent 31.1L, Red Cell Distribution Width 19.3H, Platelet Count 279, Mean Platelet Volume 6.4L, Neutrophils (%) (Auto) , Lymphocytes (%) (Auto) , Monocytes (%) (Auto) , Eosinophils (%) (Auto) , Basophils (%) (Auto) , Differential Total Cells Counted 100, Neutrophils % ( Manual) 89H, Lymphocytes % (Manual) 4L, Monocytes % (Manual) 6, Eosinophils % ( Manual) 0, Basophils % (Manual) 1, Band Neutrophils 0, Platelet Estimate Adequate, Platelet Morphology Normal, Hypochromasia 2+, Anisocytosis 2+, Microcytosis 3+, Sodium Level 135L, Potassium Level 3.9, Chloride Level 101, Carbon Dioxide Level 26, Anion Gap 8, Blood Urea Nitrogen 4L, Creatinine 0.7, Estimat Glomerular Filtration Rate > 60, Glucose Level 139H, Lactic Acid Level 0.70, Calcium Level 8.0L, Iron Level 32L, Total Iron Binding Capacity 304, Percent Iron Saturation 11L, Unsaturated Iron Binding 272, Total Bilirubin 0.3, Aspartate Amino Transf (AST/SGOT) 26, Alanine Aminotransferase (ALT/SGPT) 41, Alkaline Phosphatase 87, Total Protein 7.2, Albumin 2.6L, Globulin 4.6, Albumin/ Globulin Ratio 0.6L Current Medications Medications (Trade) Dose Ordered Sig/Kevon Route PRN Reason Start Time Stop Time Status Last Admin Dose Admin Acetaminophen/ Hydrocodone Bitart ([place] 10/325) 1 tab Q3H PRN ORAL For Pain 07/31/19 11:45 08/07/19 11:44 Bisacodyl (Dulcolax) 10 mg DAILY ORAL 07/30/19 11:00 08/29/19 10:59 07/31/19 10:39 Cefazolin Sodium 2 gm/Dextrose 110 ml @ 220 mls/hr Q8H IVPB 07/29/19 20:00 08/05/19 19:59 07/31/19 04:30 Docusate Sodium (Colace) 100 mg TWICE A DAY ORAL 07/30/19 11:00 08/29/19 10:59 07/31/19 10:39 Escitalopram Oxalate (Lexapro) 20 mg BEDTIME ORAL 07/29/19 23:00 08/28/19 22:59 07/30/19 21:24 Hydromorphone HCl (Dilaudid) 1 mg Q3H PRN IVP Mild Pain (Pain Scale 1-3) 07/29/19 17:15 08/05/19 17:14 Hydromorphone HCl (Dilaudid) 2 mg Q2H PRN IVP Severe Pain (Pain Scale 7-10) 07/29/19 17:15 08/05/19 17:14 07/31/19 10:31 Hydromorphone HCl (Dilaudid) 2 mg Q3H PRN IVP Moderate Pain (Pain Scale 4-6) 07/29/19 17:15 08/05/19 17:14 07/31/19 07:35 Iron Sucrose 100 mg/Sodium Chloride 60 ml @ 240 mls/hr BEDTIME IVPB 07/30/19 21:00 08/03/19 21:14 07/30/19 20:49 Lactulose (Cephulac) 20 gm THREE TIMES A DAY ORAL 07/30/19 18:00 08/29/19 17:59 07/31/19 10:39 Magnesium Hydroxide (Mom) 30 ml TWICE A DAY ORAL 07/29/19 19:45 08/28/19 19:44 07/30/19 17:33 Methylnaltrexone [place] (Relistor) 12 mg QOD SUBQ 08/01/19 09:00 08/31/19 08:59 Ondansetron HCl (Zofran) 4 mg Q6H PRN IVP Nausea & Vomiting 07/29/19 17:15 08/28/19 17:14 07/31/19 02:31 Serafin Vanegas MD Jul 31, 2019 12:06
[2019-07-31 12:22] LABS: HEMATOCRIT 35.1 % (37.0-47.0); HEMOGLOBIN 11.1 G/DL (12.0-16.0); MEAN CORPUSCULAR VOLUME 67 FL (80-99); PLATELET COUNT 346 K/UL (150-450); RED BLOOD COUNT 5.22 M/UL (4.20-5.40); RED CELL DISTRIBUTION WIDTH 19.2 % (11.6-14.8)
[2019-07-31 12:26] LABS: WHITE BLOOD COUNT 25.3 K/UL (4.8-10.8)
--- NOTE | 2019-07-31 12:45 | NUR ---
NURSE NOTES: Dr. Phipps notified of critical value level WBC 25.3. No further orders at this time. Dr. Phipps to see patient.
--- NOTE | 2019-07-31 13:21 | Surgery Progress Note ---
Surgery Progress Note Subjective Symptoms: improved, tolerating diet, voiding well, passing flatus, BM, pain decreased Objective Last 24 Hour Vital Signs Date Time Temp Pulse Resp B/P (MAP) Pulse Ox O2 Delivery O2 Flow Rate FiO2 07/31/19 08:00 98.3 94 20 126/82 (97) 95 07/31/19 04:00 97.9 90 20 126/76 (93) 93 07/31/19 00:00 98.8 98 20 141/84 (103) 96 07/30/19 21:00 Room Air 07/30/19 20:00 97.9 98 20 131/75 (93) 94 07/30/19 16:00 99.8 106 18 140/86 (104) 95 07/30/19 13:50 94 144/88 (106) I&O Intake and Output 07/30/19 07/31/19 19:00 07:00 Intake Total 2175 ml 1450 ml Balance 2175 ml 1450 ml Intake Oral 800 ml 200 ml IV Total 1375 ml 1250 ml # Voids 3 # Bowel Movements 3 Cardiovascular: RSR Respiratory: clear Abdomen: soft, tenderness, present bowel sounds, other Extremities: no edema, no tenderness, no cyanosis Laboratory Tests Test 07/31/19 04:45 07/31/19 12:10 White Blood Count 21.5 K/UL (4.8-10.8) #H 25.3 K/UL (4.8-10.8) *H Red Blood Count 4.66 M/UL (4.20-5.40) 5.22 M/UL (4.20-5.40) Hemoglobin 9.9 G/DL (12.0-16.0) L 11.1 G/DL (12.0-16.0) L Hematocrit 31.7 % (37.0-47.0) L 35.1 % (37.0-47.0) L Mean Corpuscular Volume 68 FL (80-99) L 67 FL (80-99) L Mean Corpuscular Hemoglobin 21.1 PG (27.0-31.0) L 21.3 PG (27.0-31.0) L Mean Corpuscular Hemoglobin Concent 31.1 G/DL (32.0-36.0) L 31.7 G/DL (32.0-36.0) L Red Cell Distribution Width 19.3 % (11.6-14.8) H 19.2 % (11.6-14.8) H Platelet Count 279 K/UL (150-450) 346 K/UL (150-450) Mean Platelet Volume 6.4 FL (6.5-10.1) L 7.0 FL (6.5-10.1) Neutrophils (%) (Auto) % (45.0-75.0) % (45.0-75.0) Lymphocytes (%) (Auto) % (20.0-45.0) % (20.0-45.0) Monocytes (%) (Auto) % (1.0-10.0) % (1.0-10.0) Eosinophils (%) (Auto) % (0.0-3.0) % (0.0-3.0) Basophils (%) (Auto) % (0.0-2.0) % (0.0-2.0) Differential Total Cells Counted 100 Neutrophils % (Manual) 89 % (45-75) H Pending Lymphocytes % (Manual) 4 % (20-45) L Pending Monocytes % (Manual) 6 % (1-10) Eosinophils % (Manual) 0 % (0-3) Basophils % (Manual) 1 % (0-2) Band Neutrophils 0 % (0-8) Platelet Estimate Adequate Pending Platelet Morphology Normal Pending Hypochromasia 2+ Anisocytosis 2+ Microcytosis 3+ Sodium Level 135 MMOL/L (136-145) L Potassium Level 3.9 MMOL/L (3.5-5.1) Chloride Level 101 MMOL/L (98-107) Carbon Dioxide Level 26 MMOL/L (21-32) Anion Gap 8 mmol/L (5-15) Blood Urea Nitrogen 4 mg/dL (7-18) L Creatinine 0.7 MG/DL (0.55-1.30) Estimat Glomerular Filtration Rate > 60 mL/min (>60) Glucose Level 139 MG/DL (74-106) H Lactic Acid Level 0.70 mmol/L (0.4-2.0) Calcium Level 8.0 MG/DL (8.5-10.1) L Iron Level 32 ug/dL (50-175) L Total Iron Binding Capacity 304 ug/dL (250-450) Percent Iron Saturation 11 % (15-50) L Unsaturated Iron Binding 272 ug/dL (112-346) Total Bilirubin 0.3 MG/DL (0.2-1.0) Aspartate Amino Transf (AST/SGOT) 26 U/L (15-37) Alanine Aminotransferase (ALT/SGPT) 41 U/L (12-78) Alkaline Phosphatase 87 U/L (46-116) Total Protein 7.2 G/DL (6.4-8.2) Albumin 2.6 G/DL (3.4-5.0) L Globulin 4.6 g/dL Albumin/Globulin Ratio 0.6 (1.0-2.7) L Plan Problems: (1) Abdominal pain Assessment & Plan: 43F with abdominal pain. likely related to recent embolization and/or constipated. KUB noted exam as above labs noted umbilical reducible hernia unlikely etiology bowel care improving leukocytosis likely reactive decrease narcotic use AM labs will follow with exam and care plan thank you Richar Quinteros Jul 31, 2019 13:21
--- NOTE | 2019-07-31 13:37 | General Surgery Progress Note ---
General Surgery-Progress Note Subjective Procedure Performed uterine artery embolization Symptoms: improved, tolerating diet, voiding well, passing flatus, BM, pain decreased Objective Last 24 Hour Vital Signs Date Time Temp Pulse Resp B/P (MAP) Pulse Ox O2 Delivery O2 Flow Rate FiO2 07/31/19 08:00 98.3 94 20 126/82 (97) 95 07/31/19 04:00 97.9 90 20 126/76 (93) 93 07/31/19 00:00 98.8 98 20 141/84 (103) 96 07/30/19 21:00 Room Air 07/30/19 20:00 97.9 98 20 131/75 (93) 94 07/30/19 16:00 99.8 106 18 140/86 (104) 95 07/30/19 13:50 94 144/88 (106) I&O Intake and Output 07/30/19 07/31/19 19:00 07:00 Intake Total 2175 ml 1450 ml Balance 2175 ml 1450 ml Intake Oral 800 ml 200 ml IV Total 1375 ml 1250 ml # Voids 3 # Bowel Movements 3 Dressing: dry Wound: clean Drains: none Cardiovascular: RSR Respiratory: clear Abdomen: soft, flat, scaphoid, tenderness, present bowel sounds Extremities: no edema, no tenderness, no cyanosis Laboratory Tests Test 07/31/19 04:45 07/31/19 12:10 White Blood Count 21.5 K/UL (4.8-10.8) #H 25.3 K/UL (4.8-10.8) *H Red Blood Count 4.66 M/UL (4.20-5.40) 5.22 M/UL (4.20-5.40) Hemoglobin 9.9 G/DL (12.0-16.0) L 11.1 G/DL (12.0-16.0) L Hematocrit 31.7 % (37.0-47.0) L 35.1 % (37.0-47.0) L Mean Corpuscular Volume 68 FL (80-99) L 67 FL (80-99) L Mean Corpuscular Hemoglobin 21.1 PG (27.0-31.0) L 21.3 PG (27.0-31.0) L Mean Corpuscular Hemoglobin Concent 31.1 G/DL (32.0-36.0) L 31.7 G/DL (32.0-36.0) L Red Cell Distribution Width 19.3 % (11.6-14.8) H 19.2 % (11.6-14.8) H Platelet Count 279 K/UL (150-450) 346 K/UL (150-450) Mean Platelet Volume 6.4 FL (6.5-10.1) L 7.0 FL (6.5-10.1) Neutrophils (%) (Auto) % (45.0-75.0) % (45.0-75.0) Lymphocytes (%) (Auto) % (20.0-45.0) % (20.0-45.0) Monocytes (%) (Auto) % (1.0-10.0) % (1.0-10.0) Eosinophils (%) (Auto) % (0.0-3.0) % (0.0-3.0) Basophils (%) (Auto) % (0.0-2.0) % (0.0-2.0) Differential Total Cells Counted 100 100 Neutrophils % (Manual) 89 % (45-75) H 81 % (45-75) H Lymphocytes % (Manual) 4 % (20-45) L 11 % (20-45) L Monocytes % (Manual) 6 % (1-10) 7 % (1-10) Eosinophils % (Manual) 0 % (0-3) 1 % (0-3) Basophils % (Manual) 1 % (0-2) 0 % (0-2) Band Neutrophils 0 % (0-8) 0 % (0-8) Platelet Estimate Adequate Adequate Platelet Morphology Normal Normal Hypochromasia 2+ 1+ Anisocytosis 2+ 2+ Microcytosis 3+ 3+ Sodium Level 135 MMOL/L (136-145) L Potassium Level 3.9 MMOL/L (3.5-5.1) Chloride Level 101 MMOL/L (98-107) Carbon Dioxide Level 26 MMOL/L (21-32) Anion Gap 8 mmol/L (5-15) Blood Urea Nitrogen 4 mg/dL (7-18) L Creatinine 0.7 MG/DL (0.55-1.30) Estimat Glomerular Filtration Rate > 60 mL/min (>60) Glucose Level 139 MG/DL (74-106) H Lactic Acid Level 0.70 mmol/L (0.4-2.0) Calcium Level 8.0 MG/DL (8.5-10.1) L Iron Level 32 ug/dL (50-175) L Total Iron Binding Capacity 304 ug/dL (250-450) Percent Iron Saturation 11 % (15-50) L Unsaturated Iron Binding 272 ug/dL (112-346) Total Bilirubin 0.3 MG/DL (0.2-1.0) Aspartate Amino Transf (AST/SGOT) 26 U/L (15-37) Alanine Aminotransferase (ALT/SGPT) 41 U/L (12-78) Alkaline Phosphatase 87 U/L (46-116) Total Protein 7.2 G/DL (6.4-8.2) Albumin 2.6 G/DL (3.4-5.0) L Globulin 4.6 g/dL Albumin/Globulin Ratio 0.6 (1.0-2.7) L Additional Comments KUB decreased stool in colon, still some distension in large bowel. repeat cbc today wbc still elevated at 25K Plan Additional Comments no signs of infection, afebrile at 1330. leukocyctosis common ff uae. no reason to change antibiotics. patient tolerating full liquid diet. continue bowel regimen, ambulate. repeat labs in am. Sumanth Phipps MD Jul 31, 2019 13:37
[2019-07-31 16:00] VITALS: BP 112/73
[2019-07-31] MEDS: HYDROcodone/Acetamin 10/325 tab ORAL PRN ×3 (16:25→23:17)
--- NOTE | 2019-07-31 16:30 | NUR ---
NURSE NOTES: Appetite on full liquids poor, denies nausea, abdomen distended, soft/tender, bowel sounds hypoactive. Abdomen XR done at 1045. Patient up ambulated in AM, showered at 1130 am. Applied compression stockings to BLE. Encouraged ambulation for reminder of shift. Discussed new order for [place] 10/325 mg, patient verbalized understanding, administered [place] 10/325 mg as ordered PRN at 1625. Will continue to monitor.
--- NOTE | 2019-07-31 17:10 | General Progress Note ---
Assessment/Plan Assessment/Plan: Assessment/Plan Problem List: (1) Abdominal pain, s/p [place] ICD Codes: R10.9 - Unspecified abdominal pain SNOMED: 45086417 (2) Uncontrollable post procedure pain (3) Constipation (4) Rising WBC noted Assessment/Plan: bowel regimen close surgical and RADAR TECHNICIAN follow up repeat labs abx CT imaging? - will defer to RADAR TECHNICIAN and surgery Subjective Allergies: Coded Allergies: No Known Allergies (Unverified , 07/29/19) Subjective Above noted c/o abd pain (+) BM last night got more laxatives today Objective Last 24 Hour Vital Signs Date Time Temp Pulse Resp B/P (MAP) Pulse Ox O2 Delivery O2 Flow Rate FiO2 07/31/19 16:00 98.1 91 18 112/73 (86) 93 07/31/19 12:00 98.8 97 16 122/78 (93) 96 07/31/19 09:00 Room Air 07/31/19 08:00 98.3 94 20 126/82 (97) 95 07/31/19 04:00 97.9 90 20 126/76 (93) 93 07/31/19 00:00 98.8 98 20 141/84 (103) 96 07/30/19 21:00 Room Air 07/30/19 20:00 97.9 98 20 131/75 (93) 94 Intake and Output 07/30/19 07/31/19 19:00 07:00 Intake Total 2175 ml 1450 ml Balance 2175 ml 1450 ml Intake Oral 800 ml 200 ml IV Total 1375 ml 1250 ml # Voids 3 # Bowel Movements 3 Laboratory Tests 07/31/19 04:45: White Blood Count 21.5#H, Red Blood Count 4.66, Hemoglobin 9.9L, Hematocrit 31.7L, Mean Corpuscular Volume 68L, Mean Corpuscular Hemoglobin 21.1L, Mean Corpuscular Hemoglobin Concent 31.1L, Red Cell Distribution Width 19.3H, Platelet Count 279, Mean Platelet Volume 6.4L, Neutrophils (%) (Auto) , Lymphocytes (%) (Auto) , Monocytes (%) (Auto) , Eosinophils (%) (Auto) , Basophils (%) (Auto) , Differential Total Cells Counted 100, Neutrophils % ( Manual) 89H, Lymphocytes % (Manual) 4L, Monocytes % (Manual) 6, Eosinophils % ( Manual) 0, Basophils % (Manual) 1, Band Neutrophils 0, Platelet Estimate Adequate, Platelet Morphology Normal, Hypochromasia 2+, Anisocytosis 2+, Microcytosis 3+, Sodium Level 135L, Potassium Level 3.9, Chloride Level 101, Carbon Dioxide Level 26, Anion Gap 8, Blood Urea Nitrogen 4L, Creatinine 0.7, Estimat Glomerular Filtration Rate > 60, Glucose Level 139H, Lactic Acid Level 0.70, Calcium Level 8.0L, Iron Level 32L, Total Iron Binding Capacity 304, Percent Iron Saturation 11L, Unsaturated Iron Binding 272, Total Bilirubin 0.3, Aspartate Amino Transf (AST/SGOT) 26, Alanine Aminotransferase (ALT/SGPT) 41, Alkaline Phosphatase 87, Total Protein 7.2, Albumin 2.6L, Globulin 4.6, Albumin/ Globulin Ratio 0.6L 07/31/19 12:10: White Blood Count 25.3*H, Red Blood Count 5.22, Hemoglobin 11.1L, Hematocrit 35.1L, Mean Corpuscular Volume 67L, Mean Corpuscular Hemoglobin 21.3L, Mean Corpuscular Hemoglobin Concent 31.7L, Red Cell Distribution Width 19.2H, Platelet Count 346, Mean Platelet Volume 7.0, Neutrophils (%) (Auto) , Lymphocytes (%) (Auto) , Monocytes (%) (Auto) , Eosinophils (%) (Auto) , Basophils (%) (Auto) , Differential Total Cells Counted 100, Neutrophils % ( Manual) 81H, Lymphocytes % (Manual) 11L, Monocytes % (Manual) 7, Eosinophils % ( Manual) 1, Basophils % (Manual) 0, Band Neutrophils 0, Platelet Estimate Adequate, Platelet Morphology Normal, Hypochromasia 1+, Anisocytosis 2+, Microcytosis 3+ Height (Feet): 5 Height (Inches): 5.00 Weight (Pounds): 175 Objective WDWN NCAT supple CTA RRR abd distended, tympanitic, TTP diffusely no edema Laureano Garcia MD Jul 31, 2019 17:10
--- NOTE | 2019-07-31 19:30 | NUR ---
HAND-OFF: Report given to René DANIELS.
--- NOTE | 2019-07-31 19:30 | NUR ---
NURSE NOTES: Receive a report from FRANCES Mccarthy. Pt is awake and alert. RLQ pain still noted. Will provide pain medication as ordered. Noted hypoactive BS on RLQ with nausea. Encourage to ambulate. Pt is aware. IV H/L is on right hand without infiltration. Call light within reach. Will continue to monitor.
[2019-07-31 20:00] VITALS: BP 134/85
--- NOTE | 2019-07-31 20:10 | NUR ---
NURSE NOTES: After drinking water, pt had vomiting, 350ml brownish color. Nausea sense relieved but no gas passing noted. Encourage to ambulate. Continue to monitor.
[2019-07-31] MEDS: Iron Sucrose 100 MG in NS 55 ML IVPB SCH (21:27)
[2019-07-31] MEDS ORDERED: LEVORA ORAL SCH (22:00)
--- NOTE | 2019-07-31 23:00 | NUR ---
NURSE NOTES: Pt had moderate amount of BM in the bathroom. Pain is tolerating with oral pain medication and nausea relieved after Zofran IVS. Will continue to monitor. No chilling or febrile sensation noted.
[2019-08-01] VITALS: BP 114/75
--- NOTE | 2019-08-01 03:00 | NUR ---
NURSE NOTES: No gas passing and nausea noted. Waiting for next dose of mediation. Offer ice chips but refuses. Will continue to monitor.
--- NOTE | 2019-08-01 03:15 | NUR ---
NURSE NOTES: One more time vomiting in the bathroom. Will continue to monitor.
[2019-08-01] MEDS: ceFAZolin sod 2 GM in D5W 110 ML IVPB SCH ×2 (03:59→04:00)
[2019-08-01 04:00] VITALS: BP 121/87
--- NOTE | 2019-08-01 04:30 | NUR ---
NURSE NOTES: Tried to give medication but pt felt pain on IV access. No swelling or infiltration noted. Attempted to establish but unable to get one yet. CN made aware.
--- NOTE | 2019-08-01 06:00 | NUR ---
NURSE NOTES: No more vomiting noted but nausea sense is on and off. Will continue to monitor.
[2019-08-01 06:36] LABS: HEMATOCRIT 32.2 % (37.0-47.0); HEMOGLOBIN 9.9 G/DL (12.0-16.0); MEAN CORPUSCULAR VOLUME 68 FL (80-99); PLATELET COUNT 309 K/UL (150-450); RED BLOOD COUNT 4.74 M/UL (4.20-5.40); RED CELL DISTRIBUTION WIDTH 19.4 % (11.6-14.8); WHITE BLOOD COUNT 19.8 K/UL (4.8-10.8)
[2019-08-01 07:04] LABS: ALANINE AMINOTRANSFERASE 27 U/L (12-78); ALBUMIN 2.6 G/DL (3.4-5.0); ALBUMIN/GLOBULIN RATIO 0.5 (1.0-2.7); ALKALINE PHOSPHATASE 99 U/L (46-116); ANION GAP 7 mmol/L (5-15); ASPARTATE AMINO TRANSFERASE 31 U/L (15-37); BILIRUBIN,TOTAL 0.3 MG/DL (0.2-1.0); BLOOD UREA NITROGEN 4 mg/dL (7-18); CALCIUM 8.7 MG/DL (8.5-10.1); CARBON DIOXIDE 28 MMOL/L (21-32); CHLORIDE 101 MMOL/L (98-107); CREATININE 0.6 MG/DL (0.55-1.30); POTASSIUM 4.6 MMOL/L (3.5-5.1); SODIUM 136 MMOL/L (136-145)
--- NOTE | 2019-08-01 07:15 | NUR ---
NURSE NOTES: Report received from o RN, rounds made. Patient alert, oriented x4, calm. No SOB on RA. Reports abdominal pain 2-3/10, denies need for pain medication. Abdomen distended, soft, bowel sounds hypoactive, flatulence present per patient report. No emesis at this time, nausea subsided. Last BM (diarrheal) at 0530 per patient. Encouraged ambulation. LH IV heplock intact, painful with flushing, will attempt to restart IV. Call light in reach, bed in lowest position, will continue to monitor.
--- NOTE | 2019-08-01 07:30 | NUR ---
HAND-OFF: Report given to FRANCES Mccarthy. Round is done. Endorse for IV access needed. No acute distress. After ambulation this morning, Pt said that she had one more BM. Will continue to monitor.
[2019-08-01 08:00] VITALS: BP 126/78
[2019-08-01] MEDS: Lactulose 20gm/30ml UDC ORAL SCH ×2 (08:53→12:37)
[2019-08-01] MEDS: Bisacodyl EC 5mg tab ORAL SCH (08:54)
[2019-08-01] MEDS: Milk of Magnesia 30ml Ud ORAL SCH (08:54)
[2019-08-01] MEDS: Docusate 100mg cap ORAL SCH (08:54)
[2019-08-01] MEDS ORDERED: Relistor 12mg/0.6ml Vial SUBQ SCH (09:00)
--- NOTE | 2019-08-01 10:47 | Surgery Progress Note ---
Surgery Progress Note Subjective Symptoms: improved, tolerating diet, voiding well, passing flatus, BM, pain decreased Objective Last 24 Hour Vital Signs Date Time Temp Pulse Resp B/P (MAP) Pulse Ox O2 Delivery O2 Flow Rate FiO2 08/01/19 09:06 Room Air 08/01/19 08:00 98.9 91 18 126/78 (94) 94 08/01/19 04:00 98.3 90 20 121/87 (98) 96 08/01/19 00:00 98.4 92 18 114/75 (88) 95 07/31/19 21:00 Room Air 07/31/19 20:00 98.1 99 18 134/85 (101) 95 07/31/19 16:00 98.1 91 18 112/73 (86) 93 07/31/19 12:00 98.8 97 16 122/78 (93) 96 I&O Intake and Output 07/31/19 08/01/19 19:00 07:00 Intake Total 910 ml 450 ml Output Total 700 ml Balance 910 ml -250 ml Intake Oral 910 ml 450 ml Output Emesis 700 ml # Voids 2 3 # Bowel Movements 1 Cardiovascular: RSR Respiratory: clear Abdomen: flat, tenderness - improved , present bowel sounds, other, non- distended Extremities: no edema, no tenderness, no cyanosis Laboratory Tests Test 07/31/19 12:10 08/01/19 04:00 08/01/19 04:45 White Blood Count 25.3 K/UL (4.8-10.8) *H 19.8 K/UL (4.8-10.8) H Red Blood Count 5.22 M/UL (4.20-5.40) 4.74 M/UL (4.20-5.40) Hemoglobin 11.1 G/DL (12.0-16.0) L 9.9 G/DL (12.0-16.0) L Hematocrit 35.1 % (37.0-47.0) L 32.2 % (37.0-47.0) L Mean Corpuscular Volume 67 FL (80-99) L 68 FL (80-99) L Mean Corpuscular Hemoglobin 21.3 PG (27.0-31.0) L 20.8 PG (27.0-31.0) L Mean Corpuscular Hemoglobin Concent 31.7 G/DL (32.0-36.0) L 30.7 G/DL (32.0-36.0) L Red Cell Distribution Width 19.2 % (11.6-14.8) H 19.4 % (11.6-14.8) H Platelet Count 346 K/UL (150-450) 309 K/UL (150-450) Mean Platelet Volume 7.0 FL (6.5-10.1) 6.9 FL (6.5-10.1) Neutrophils (%) (Auto) % (45.0-75.0) % (45.0-75.0) Lymphocytes (%) (Auto) % (20.0-45.0) % (20.0-45.0) Monocytes (%) (Auto) % (1.0-10.0) % (1.0-10.0) Eosinophils (%) (Auto) % (0.0-3.0) % (0.0-3.0) Basophils (%) (Auto) % (0.0-2.0) % (0.0-2.0) Differential Total Cells Counted 100 100 Neutrophils % (Manual) 81 % (45-75) H 85 % (45-75) H Lymphocytes % (Manual) 11 % (20-45) L 7 % (20-45) L Monocytes % (Manual) 7 % (1-10) 8 % (1-10) Eosinophils % (Manual) 1 % (0-3) 0 % (0-3) Basophils % (Manual) 0 % (0-2) 0 % (0-2) Band Neutrophils 0 % (0-8) 0 % (0-8) Platelet Estimate Adequate Adequate Platelet Morphology Normal Normal Hypochromasia 1+ 1+ Anisocytosis 2+ 1+ Microcytosis 3+ 1+ Sodium Level 136 MMOL/L (136-145) Potassium Level 4.6 MMOL/L (3.5-5.1) Chloride Level 101 MMOL/L (98-107) Carbon Dioxide Level 28 MMOL/L (21-32) Anion Gap 7 mmol/L (5-15) Blood Urea Nitrogen 4 mg/dL (7-18) L Creatinine 0.6 MG/DL (0.55-1.30) Estimat Glomerular Filtration Rate > 60 mL/min (>60) Glucose Level 95 MG/DL (74-106) Calcium Level 8.7 MG/DL (8.5-10.1) Total Bilirubin 0.3 MG/DL (0.2-1.0) Aspartate Amino Transf (AST/SGOT) 31 U/L (15-37) Alanine Aminotransferase (ALT/SGPT) 27 U/L (12-78) Alkaline Phosphatase 99 U/L (46-116) Total Protein 7.6 G/DL (6.4-8.2) Albumin 2.6 G/DL (3.4-5.0) L Globulin 5.0 g/dL Albumin/Globulin Ratio 0.5 (1.0-2.7) L Plan Problems: (1) Abdominal pain Assessment & Plan: 43F with abdominal pain. likely related to recent embolization and/or constipated. KUB noted exam as above labs noted umbilical reducible hernia unlikely etiology bowel care improving leukocytosis trending down decrease narcotic use AM labs d/c IV transition to oral will follow with exam and care plan thank you Richar Quinteros Aug 01, 2019 10:47
[2019-08-01] MEDS ORDERED: Ketorolac 30mg Inj IM PRN (11:00)
[2019-08-01] MEDS: HYDROcodone/Acetamin 10/325 tab ORAL PRN (11:40)
--- NOTE | 2019-08-01 11:45 | NUR ---
NURSE NOTES: Patient refusing IV restart and requesting PO antibiotics/iron instead of IV administration, Dr. Phipps notified. Orders to discontinue all IV medications, see orders. Dr. Quinteros to order oral antibiotic per Dr. Phipps. Patient updated on new orders, verbalized understanding. IV discontinued, no active bleeding.
[2019-08-01 12:00] VITALS: BP 110/75
[2019-08-01] MEDS ORDERED: Augmentin 875mg Tab ORAL SCH (12:00)
[2019-08-01] MEDS ORDERED: metroNIDAZOLE 500mg tab ORAL SCH ×2 (12:00)
--- NOTE | 2019-08-01 14:33 | Pulmonology Progress Note ---
Assessment/Plan Problems: (1) Leukocytosis (2) Uncontrollable post procedure pain (3) Constipation Assessment/Plan Problem List: * Intractable abdominal pain, better * Uterine fibroid s/p emobilization 07/27 * Depression * tobacco use disorder * Leukocytosis, likely reactive, better Plan: * pain control * bowel regimen * Diet as tolerated * Monitor WCt * Augmentin/Flagyl * IS * advised to ambulate Subjective Allergies: Coded Allergies: No Known Allergies (Unverified , 07/29/19) Subjective AFVSS on RA Pain better, controlled with meds OOB no F/C, no CP, no SOB No NV + BM, voiding freely Objective Last 24 Hour Vital Signs Date Time Temp Pulse Resp B/P (MAP) Pulse Ox O2 Delivery O2 Flow Rate FiO2 08/01/19 12:00 99.6 93 18 110/75 (87) 96 08/01/19 09:06 Room Air 08/01/19 08:00 98.9 91 18 126/78 (94) 94 08/01/19 04:00 98.3 90 20 121/87 (98) 96 08/01/19 00:00 98.4 92 18 114/75 (88) 95 07/31/19 21:00 Room Air 07/31/19 20:00 98.1 99 18 134/85 (101) 95 07/31/19 16:00 98.1 91 18 112/73 (86) 93 Intake and Output 07/31/19 08/01/19 19:00 07:00 Intake Total 910 ml 450 ml Output Total 700 ml Balance 910 ml -250 ml Intake Oral 910 ml 450 ml Output Emesis 700 ml # Voids 2 3 # Bowel Movements 1 General Appearance: WD/WN, no acute distress HEENT: normocephalic, atraumatic, anicteric, mucous membranes moist Respiratory/Chest: chest wall non-tender, lungs clear, normal breath sounds, no respiratory distress, no accessory muscle use Cardiovascular: normal peripheral pulses, normal rate, regular rhythm Abdomen: normal bowel sounds, soft, non tender, no organomegaly, non distended , no mass Extremities: no cyanosis, no clubbing, no edema Laboratory Tests 08/01/19 04:00: White Blood Count 19.8H, Red Blood Count 4.74, Hemoglobin 9.9L, Hematocrit 32.2L , Mean Corpuscular Volume 68L, Mean Corpuscular Hemoglobin 20.8L, Mean Corpuscular Hemoglobin Concent 30.7L, Red Cell Distribution Width 19.4H, Platelet Count 309, Mean Platelet Volume 6.9, Neutrophils (%) (Auto) , Lymphocytes (%) (Auto) , Monocytes (%) (Auto) , Eosinophils (%) (Auto) , Basophils (%) (Auto) , Differential Total Cells Counted 100, Neutrophils % ( Manual) 85H, Lymphocytes % (Manual) 7L, Monocytes % (Manual) 8, Eosinophils % ( Manual) 0, Basophils % (Manual) 0, Band Neutrophils 0, Platelet Estimate Adequate, Platelet Morphology Normal, Hypochromasia 1+, Anisocytosis 1+, Microcytosis 1+ 08/01/19 04:45: Sodium Level 136, Potassium Level 4.6, Chloride Level 101, Carbon Dioxide Level 28, Anion Gap 7, Blood Urea Nitrogen 4L, Creatinine 0.6, Estimat Glomerular Filtration Rate > 60, Glucose Level 95, Calcium Level 8.7, Total Bilirubin 0.3, Aspartate Amino Transf (AST/SGOT) 31, Alanine Aminotransferase (ALT/SGPT) 27, Alkaline Phosphatase 99, Total Protein 7.6, Albumin 2.6L, Globulin 5.0, Albumin/ Globulin Ratio 0.5L Current Medications Medications (Trade) Dose Ordered Sig/Kevon Route PRN Reason Start Time Stop Time Status Last Admin Dose Admin Acetaminophen/ Hydrocodone Bitart (Adolphus 10/325) 1 tab Q3H PRN ORAL For Pain 07/31/19 11:45 08/07/19 11:44 08/01/19 11:40 Amoxicillin/ Clavulanate Potassium (Augmentin) 875 mg EVERY 12 HOURS ORAL 08/01/19 12:00 08/08/19 11:59 08/01/19 12:36 Bisacodyl (Dulcolax) 10 mg DAILY ORAL 07/30/19 11:00 08/29/19 10:59 08/01/19 08:54 Docusate Sodium (Colace) 100 mg TWICE A DAY ORAL 07/30/19 11:00 08/29/19 10:59 07/31/19 18:20 Escitalopram Oxalate (Lexapro) 20 mg BEDTIME ORAL 07/29/19 23:00 08/28/19 22:59 07/31/19 21:57 Ketorolac Tromethamine (Toradol 30mg) 30 mg Q6H PRN IM breakthough pain 08/01/19 11:00 08/06/19 10:59 Lactulose (Cephulac) 20 gm THREE TIMES A DAY ORAL 07/30/19 18:00 08/29/19 17:59 07/31/19 18:20 Magnesium Hydroxide (Mom) 30 ml TWICE A DAY ORAL 07/29/19 19:45 08/28/19 19:44 07/30/19 17:33 Methylnaltrexone Tow (Relistor) 12 mg QOD SUBQ 08/01/19 09:00 08/31/19 08:59 08/01/19 08:54 Metronidazole (Flagyl) 500 mg Q6HR ORAL 08/01/19 12:00 08/08/19 11:59 08/01/19 12:35 Ondansetron HCl (Zofran ODT) 4 mg Q6H PRN ORAL Nausea & Vomiting 08/01/19 10:15 08/31/19 10:14 Serafin Vanegas MD Aug 01, 2019 14:33
--- NOTE | 2019-08-01 14:46 | Discharge Summary ---
Discharge Summary Hospital Course Date of Admission Jul 29, 2019 at 15:30 Date of Discharge 08/01/19 Admitting Diagnosis INTERACTABLE ABDOMINAL PAIN Reason for Hospitalization: Postop pain HPI Nate To is a 43 year old female who was admitted on Jul 29, 2019 at 15:30 for Intractable Abdominal Pain Consultations Sumanth Phipps MD OBGYN JESUS Quinteros MD Surgery Matt Oquendo MD GI Procedures None Hospital Course Patient admitted POD 1 SP UFE with post op pain Hospital course c/b constipation and post op leukocytosis On the day of D/C she was seen by Dr. Phipps and cleared for D/C She will check a CBC with him tomorrow Discharge Condition Upon Discharge: stable Discharge Disposition Patient was discharged to home Discharge Diagnoses: (1) Abdominal pain Serafin Vanegas MD Aug 01, 2019 14:46
--- NOTE | 2019-08-01 15:00 | NUR ---
NURSE NOTES: Patient had x2 brown, small, liquid BMs for this shift. Lactulose, Colace, MOM held as ordered. No NV. Appetite poor. Addendum: 08/01/19 at 1658 by Shari Watson RN Patient drank x1 prune juice, tolerated well. Addendum: 08/01/19 at 1702 by Shari Watson RN Offered pain medication at 1500, patient denies need for pain medication prior to discharge.
--- NOTE | 2019-08-01 15:45 | General Surgery Progress Note ---
General Surgery-Progress Note Subjective Procedure Performed uterine artery embolization Symptoms: tolerating diet, voiding well, passing flatus, BM, pain decreased Objective Last 24 Hour Vital Signs Date Time Temp Pulse Resp B/P (MAP) Pulse Ox O2 Delivery O2 Flow Rate FiO2 08/01/19 12:00 99.6 93 18 110/75 (87) 96 08/01/19 09:06 Room Air 08/01/19 08:00 98.9 91 18 126/78 (94) 94 08/01/19 04:00 98.3 90 20 121/87 (98) 96 08/01/19 00:00 98.4 92 18 114/75 (88) 95 07/31/19 21:00 Room Air 07/31/19 20:00 98.1 99 18 134/85 (101) 95 07/31/19 16:00 98.1 91 18 112/73 (86) 93 I&O Intake and Output 07/31/19 08/01/19 19:00 07:00 Intake Total 910 ml 450 ml Output Total 700 ml Balance 910 ml -250 ml Intake Oral 910 ml 450 ml Output Emesis 700 ml # Voids 2 3 # Bowel Movements 1 Dressing: dry Wound: clean Drains: none Cardiovascular: RSR Respiratory: clear Abdomen: soft, flat, scaphoid, non-tender, present bowel sounds Extremities: no edema, no tenderness, no cyanosis Laboratory Tests Test 08/01/19 04:00 08/01/19 04:45 White Blood Count 19.8 K/UL (4.8-10.8) H Red Blood Count 4.74 M/UL (4.20-5.40) Hemoglobin 9.9 G/DL (12.0-16.0) L Hematocrit 32.2 % (37.0-47.0) L Mean Corpuscular Volume 68 FL (80-99) L Mean Corpuscular Hemoglobin 20.8 PG (27.0-31.0) L Mean Corpuscular Hemoglobin Concent 30.7 G/DL (32.0-36.0) L Red Cell Distribution Width 19.4 % (11.6-14.8) H Platelet Count 309 K/UL (150-450) Mean Platelet Volume 6.9 FL (6.5-10.1) Neutrophils (%) (Auto) % (45.0-75.0) Lymphocytes (%) (Auto) % (20.0-45.0) Monocytes (%) (Auto) % (1.0-10.0) Eosinophils (%) (Auto) % (0.0-3.0) Basophils (%) (Auto) % (0.0-2.0) Differential Total Cells Counted 100 Neutrophils % (Manual) 85 % (45-75) H Lymphocytes % (Manual) 7 % (20-45) L Monocytes % (Manual) 8 % (1-10) Eosinophils % (Manual) 0 % (0-3) Basophils % (Manual) 0 % (0-2) Band Neutrophils 0 % (0-8) Platelet Estimate Adequate Platelet Morphology Normal Hypochromasia 1+ Anisocytosis 1+ Microcytosis 1+ Sodium Level 136 MMOL/L (136-145) Potassium Level 4.6 MMOL/L (3.5-5.1) Chloride Level 101 MMOL/L (98-107) Carbon Dioxide Level 28 MMOL/L (21-32) Anion Gap 7 mmol/L (5-15) Blood Urea Nitrogen 4 mg/dL (7-18) L Creatinine 0.6 MG/DL (0.55-1.30) Estimat Glomerular Filtration Rate > 60 mL/min (>60) Glucose Level 95 MG/DL (74-106) Calcium Level 8.7 MG/DL (8.5-10.1) Total Bilirubin 0.3 MG/DL (0.2-1.0) Aspartate Amino Transf (AST/SGOT) 31 U/L (15-37) Alanine Aminotransferase (ALT/SGPT) 27 U/L (12-78) Alkaline Phosphatase 99 U/L (46-116) Total Protein 7.6 G/DL (6.4-8.2) Albumin 2.6 G/DL (3.4-5.0) L Globulin 5.0 g/dL Albumin/Globulin Ratio 0.5 (1.0-2.7) L Plan Additional Comments decreased pain. WBC trending down. + BM +flatus, good appetite. ok to discharge on oral medication, augmentin. FU CBC as OP. discussed w dr alves. Sumanth Phipps MD Aug 01, 2019 15:45
[2019-08-01 16:00] VITALS: BP 104/70
--- NOTE | 2019-08-01 16:24 | General Progress Note ---
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 up repeat labs abx Subjective Allergies: Coded Allergies: No Known Allergies (Unverified , 07/29/19) Subjective Above noted c/o abd pain (+) BM last night Objective Last 24 Hour Vital Signs Date Time Temp Pulse Resp B/P (MAP) Pulse Ox O2 Delivery O2 Flow Rate FiO2 08/01/19 16:00 98.4 88 18 104/70 (81) 96 08/01/19 12:00 99.6 93 18 110/75 (87) 96 08/01/19 09:06 Room Air 08/01/19 08:00 98.9 91 18 126/78 (94) 94 08/01/19 04:00 98.3 90 20 121/87 (98) 96 08/01/19 00:00 98.4 92 18 114/75 (88) 95 07/31/19 21:00 Room Air 07/31/19 20:00 98.1 99 18 134/85 (101) 95 Intake and Output 07/31/19 08/01/19 19:00 07:00 Intake Total 910 ml 450 ml Output Total 700 ml Balance 910 ml -250 ml Intake Oral 910 ml 450 ml Output Emesis 700 ml # Voids 2 3 # Bowel Movements 1 Laboratory Tests 08/01/19 04:00: White Blood Count 19.8H, Red Blood Count 4.74, Hemoglobin 9.9L, Hematocrit 32.2L , Mean Corpuscular Volume 68L, Mean Corpuscular Hemoglobin 20.8L, Mean Corpuscular Hemoglobin Concent 30.7L, Red Cell Distribution Width 19.4H, Platelet Count 309, Mean Platelet Volume 6.9, Neutrophils (%) (Auto) , Lymphocytes (%) (Auto) , Monocytes (%) (Auto) , Eosinophils (%) (Auto) , Basophils (%) (Auto) , Differential Total Cells Counted 100, Neutrophils % ( Manual) 85H, Lymphocytes % (Manual) 7L, Monocytes % (Manual) 8, Eosinophils % ( Manual) 0, Basophils % (Manual) 0, Band Neutrophils 0, Platelet Estimate Adequate, Platelet Morphology Normal, Hypochromasia 1+, Anisocytosis 1+, Microcytosis 1+ 08/01/19 04:45: Sodium Level 136, Potassium Level 4.6, Chloride Level 101, Carbon Dioxide Level 28, Anion Gap 7, Blood Urea Nitrogen 4L, Creatinine 0.6, Estimat Glomerular Filtration Rate > 60, Glucose Level 95, Calcium Level 8.7, Total Bilirubin 0.3, Aspartate Amino Transf (AST/SGOT) 31, Alanine Aminotransferase (ALT/SGPT) 27, Alkaline Phosphatase 99, Total Protein 7.6, Albumin 2.6L, Globulin 5.0, Albumin/ Globulin Ratio 0.5L Height (Feet): 5 Height (Inches): 5.00 Weight (Pounds): 175 Objective WDWN NCAT supple CTA RRR abd distended, tympanitic, TTP diffusely no edema Laureano Garcia MD Aug 01, 2019 16:24
[2019-08-01] MEDS ORDERED: NS 275ml ONE (16:44)
[2019-08-01] MEDS ORDERED: Tubing IV Secondary IV ONE (16:44)
--- NOTE | 2019-08-01 16:45 | NUR ---
NURSE NOTES: Discharge instructions reviewed with patient, verbalized understanding. All belongings and discharge instructions given to patient. Ambulated down to lobby with RN, in stable condition. Picked up home medications from pharmacy security, reviewed content with patient and given to patient. Discharged home at 1645.
--- NOTE | 2019-08-02 11:16 | NUR ---
*-* INSURANCE *-* ALL AVAILABLE CLINICALS HAVE BEEN FAXED TO: [facility] RAMIR[employer]: MATT REF# [id number] FAX [phone] Work Work
== END 2019-08-01 16:45 | disposition home or self-care (01) | DRG 948 ==
LOC: EDBEDREQ 15:01 → EMR 15:28 → OBSVTOIN 15:30 → 3E 15:30 → EDBEDREQ 15:45
DX: G89.18 Other acute postprocedural pain (principal); K59.00 Constipation, unspecified; F17.200 Nicotine dependence, unspecified, uncomplicated; F32.9 Major depressive disorder, single episode, unspecified; Z98.890 Other specified postprocedural states; D25.9 Leiomyoma of uterus, unspecified
CPT/HCPCS: 36415; 74018; 80053; 83540; 83550; 83605; 85007; 85025; 96374; 96375; 96376; 99285; J2405